=== PATIENT | male | born 1940 | race Caucasian/White ===

== ENCOUNTER → 2023-10-27 07:18 | Outpatient (REF) | payer OTHER, SELFPAY ==
[2023-10-27 09:41] LABS: Hematocrit 34.2 % (39.0-52.0); Hemoglobin 11.3 g/dL (13.0-18.0); Mean Corpuscular Hgb 30.2 pg (27.0-31.0); Mean Corpuscular Volume 91.4 fL (80.0-94.0); Mean Platelet Volume 9.6 fL (7.4-10.4); Platelet Count 351 10^3/uL (130-400); Red Blood Cell Count 3.74 10^6/uL (4.70-6.10); Red Cell Dist. Width 15.9 % (11.5-14.5); White Blood Cell Count 6.4 10^3/uL (4.8-10.8)
[2023-10-27 11:14] LABS: Glycohemoglobin (HgbA1c) 7.4 % (4.0-5.6)
[2023-10-27 11:31] LABS: Protein/creatinine Ratio 0.1; Urine Protein 6 mg/dl
[2023-10-27 11:32] LABS: ALT (SGPT) 21 U/L (0-50); AST (SGOT) 39 U/L (17-59); Albumin 4.3 g/dl (3.5-5.0); Alkaline Phosphatase 59 U/L (38-126); Blood Urea Nitrogen 33 mg/dl (9-20); Calcium 9.7 mg/dl (8.4-10.2); Carbon Dioxide 25 mmol/L (22-30); Chloride 105 mmol/L (98-107); Glucose 100 mg/dl (70-99); HDL Cholesterol 48 mg/dl; LDL Cholesterol, Calculated 103 mg/dl; Sodium 139 mmol/L (135-145); Total Bilirubin 1.3 mg/dl (0.2-1.3); Total Cholesterol 171 mg/dl (50-199); Total Protein 7.5 g/dl (6.3-8.2); Triglyceride 101 mg/dl (10-149); Very Low Density Lipoprotein 20 mg/dl (0-30)
[2023-10-27 11:41] LABS: Microalbumin, Random Urine <0.6 mg/dl (0.6-1.7)
[2023-10-27 12:12] LABS: PSA, Total - Screen 1.39 ng/ml (0.0-4.0); TSH 2.06 uIU/ml (0.47-4.68)
== END ==
LOC: HWLAB 07:18
PROVIDERS: ATTENDING PHYSICIAN Specialist; FAMILY PHYSICIAN Family Medicine; OTHER PHYSICIAN Urology; REFERRING PHYSICIAN Physician Assistant
DX: E10.65 Type 1 diabetes mellitus with hyperglycemia (principal); Z12.5 Encounter for screening for malignant neoplasm of prostate; N40.1 Benign prostatic hyperplasia with lower urinary tract symptoms; N17.9 Acute kidney failure, unspecified
CPT/HCPCS: 36415; 80053; 80061; 82043; 82570; 83036; 83970; 84156; 84443; 85027; G0103

== ENCOUNTER → 2023-11-10 07:57 | Outpatient (REF) | payer OTHER, SELFPAY | LOC: HWRCS 07:57 | PROVIDERS: ATTENDING PHYSICIAN Internal Medicine; FAMILY PHYSICIAN Family Medicine | DX: I35.0 Nonrheumatic aortic (valve) stenosis (principal); I10 Essential (primary) hypertension; I77.810 Thoracic aortic ectasia | CPT/HCPCS: 93306 ==

== ENCOUNTER → 2024-04-19 06:46 | Outpatient (REF) | payer OTHER, SELFPAY ==
[2024-04-19 09:18] LABS: Albumin 4.4 g/dl (3.5-5.0); Blood Urea Nitrogen 29 mg/dl (9-20); Calcium 9.8 mg/dl (8.4-10.2); Carbon Dioxide 26 mmol/L (22-30); Chloride 103 mmol/L (98-107); Glucose 78 mg/dl (70-99); Phosphorus 3.7 mg/dl (2.5-4.5); Sodium 139 mmol/L (135-145); eGFR 34.79
[2024-04-19 09:19] LABS: Glycohemoglobin (HgbA1c) 7.2 % (4.0-5.6)
[2024-04-19 10:26] LABS: Microalbumin, Random Urine <0.6 mg/dl (0.6-1.7)
== END ==
LOC: HWLAB 06:46
PROVIDERS: ATTENDING PHYSICIAN Specialist; FAMILY PHYSICIAN Family Medicine
DX: N17.9 Acute kidney failure, unspecified (principal); E10.65 Type 1 diabetes mellitus with hyperglycemia
CPT/HCPCS: 36415; 80069; 82043; 82570; 83036

== ENCOUNTER → 2024-07-27 07:10 | Outpatient (REF) | payer OTHER, SELFPAY ==
[2024-07-27 09:53] LABS: Hematocrit 37.5 % (39.0-52.0); Hemoglobin 12.2 g/dL (13.0-18.0); Mean Corp Hgb Conc. 32.5 g/dL (33.0-37.0); Mean Corpuscular Hgb 30.2 pg (27.0-31.0); Mean Corpuscular Volume 92.8 fL (80.0-94.0); Mean Platelet Volume 9.5 fL (7.4-10.4); Platelet Count 327 10^3/uL (130-400); Red Blood Cell Count 4.04 10^6/uL (4.70-6.10); Red Cell Dist. Width 15.6 % (11.5-14.5); White Blood Cell Count 7.1 10^3/uL (4.8-10.8)
[2024-07-27 09:56] LABS: ALT (SGPT) 28 U/L (0-50); AST (SGOT) 42 U/L (17-59); Albumin 4.4 g/dl (3.5-5.0); Alkaline Phosphatase 68 U/L (38-126); Blood Urea Nitrogen 32 mg/dl (9-20); Calcium 9.7 mg/dl (8.4-10.2); Carbon Dioxide 25 mmol/L (22-30); Chloride 105 mmol/L (98-107); Glucose 125 mg/dl (70-99); HDL Cholesterol 37 mg/dl; LDL Cholesterol, Calculated 84 mg/dl; Potassium 4.9 mmol/L (3.5-5.1); Sodium 141 mmol/L (135-145); Total Bilirubin 1.4 mg/dl (0.2-1.3); Total Cholesterol 158 mg/dl (50-199); Total Protein 7.7 g/dl (6.3-8.2); Triglyceride 189 mg/dl (10-149); Very Low Density Lipoprotein 37 mg/dl (0-30); eGFR 39.75
[2024-07-27 10:17] LABS: Protein/creatinine Ratio 0.1; Urine Protein 7 mg/dl
[2024-07-27 10:24] LABS: TSH 2.85 uIU/ml (0.47-4.68)
[2024-07-27 10:27] LABS: Microalbumin, Random Urine < 0.6 mg/dl (0.6-1.7)
[2024-07-27 10:50] LABS: IgA 531 mg/dl (70-400)
[2024-07-27 12:51] LABS: Glycohemoglobin (HgbA1c) 7.3 % (4.0-5.6)
[2024-07-28 19:17] LABS: tTG IgA Antibody 1.65 FLU (0.00-4.99)
[2024-07-29 21:11] LABS: Endomysial IgA Antibody Titer <1:10 (<1:10)
== END ==
LOC: HWLAB 07:10
PROVIDERS: ATTENDING PHYSICIAN Physician Assistant; FAMILY PHYSICIAN Family Medicine
DX: E10.65 Type 1 diabetes mellitus with hyperglycemia (principal)
CPT/HCPCS: 36415; 80053; 80061; 82043; 82570; 82784; 83036; 83516; 84156; 84443; 85027; 86231

== ENCOUNTER 2024-08-18 19:59 | Emergency (ER) | payer OTHER, SELFPAY ==
[2024-08-18 20:00] VITALS: BMI 28.7
[2024-08-18 20:09] VITALS: BP 168/103
[2024-08-18 20:17] LABS: Glucose - Point of Care 542 mg/dl (70-99)
[2024-08-18 20:25] VITALS: BP 154/139
[2024-08-18 20:50] LABS: % Basophils 0.5 % (0-2); % Immature Granulocytes 0.5 % (0-0.5); % Lymphocytes 24.3 % (20.5-51.1); % Monocytes 12.8 % (1.7-9.3); % Neutrophils 59.9 % (42.2-75.2); Absolute Eosinophils 0.1 10^3/uL (0-0.7); Absolute Lymphocytes 1.6 10^3/uL (1.2-3.4); Absolute Monocytes 0.8 10^3/uL (0.1-0.6); Absolute Neutrophils 3.9 10^3/uL (1.4-6.5); Hematocrit 37.3 % (39.0-52.0); Hemoglobin 12.4 g/dL (13.0-18.0); Mean Corp Hgb Conc. 33.2 g/dL (33.0-37.0); Mean Corpuscular Hgb 30.8 pg (27.0-31.0); Mean Corpuscular Volume 92.6 fL (80.0-94.0); Mean Platelet Volume 9.2 fL (7.4-10.4); Nucleated Red Blood Cells % 0 % (-); Platelet Count 290 10^3/uL (130-400); Red Blood Cell Count 4.03 10^6/uL (4.70-6.10); White Blood Cell Count 6.4 10^3/uL (4.8-10.8)
[2024-08-18] MEDS: NSS 1000 IV (20:58)
[2024-08-18 21:00] VITALS: BP 149/81
[2024-08-18 21:11] LABS: ALT (SGPT) 69 U/L (0-50); AST (SGOT) 176 U/L (17-59); Alkaline Phosphatase 61 U/L (38-126); Blood Urea Nitrogen 32 mg/dl (9-20); Calcium 9.2 mg/dl (8.4-10.2); Carbon Dioxide 25 mmol/L (22-30); Chloride 98 mmol/L (98-107); Estimated Creatinine Clearance 39 ml/min; Glucose 506 mg/dl (70-99); Glucose 553 mg/dl (70-99); Potassium 4.7 mmol/L (3.5-5.1); Sodium 133 mmol/L (135-145); Total Protein 7.1 g/dl (6.3-8.2); eGFR 39.75
[2024-08-18 22:00] VITALS: BP 116/94
[2024-08-18 22:38] LABS: Glucose - Point of Care 197 mg/dl (70-99)
--- NOTE | 2024-08-18 22:38 | ED.GENMED ---
History of Present Illness
General
Chief Complaint: Blood Sugar Problem
Source: patient and spouse
Time Seen by Provider: 08/18/24 20:19
History of Present Illness
History of Present Illness:
83-year-old male presents with high blood sugar. The patient states that he ate dinner last night but his pump seem to be malfunctioning. His sugar was elevated last night. He tried taking extra insulin but when he woke up his blood sugar was
still high in the morning of close to 300. He states that it seemed to be coming down a little bit by couple points and decide to go down the shore. He then had a light breakfast. His sugars then started to climb. To the afternoon they bumped up
closer to 500. Patient otherwise feels normal. He was concerned because typically is very well controlled. No chest pain or shortness of breath.
Past History
Past History
ED Past Medical History: Cancer (Colon, pancreatic), HTN, Hypercholesterolemia, NIDDM and Other (Pancreatic cancer with Whipple)
ED Past Surgical History: Other (Whipple, colon)
Phy Exam
Physical Exam
Physical Exam:
CONSTITUTIONAL Patient alert and oriented to person, place and time. Well-appearing. Vital signs reviewed.
HEAD atraumatic, normocephalic.
EYES eyelids normal to inspection, Extraocular muscles intact, Conjunctiva normal, Sclera normal.
NECK normal range of motion, Trachea midline, no jugular venous distention.
RESPIRATORY CHEST No respiratory distress noted, Chest expansion equal, Bilateral breath sounds clear.
CARDIOVASCULAR regular rate and rhythm, 3 out of 6 systolic ejection
ABDOMEN abdomen nontender, Bowel sounds normal. No distention.
BACK normal inspection, no obvious deformities
UPPER EXTREMITY range of motion normal, Motor strength normal, no cyanosis, no edema.
LOWER EXTREMITY range of motion normal, Motor strength normal, no cyanosis, no edema.
NEURO Speech normal, No focal motor deficits, [place] coma scale 15, Memory normal, Cranial Nerves intact to screening exam.
SKIN skin warm, dry, and normal in color.
Course
Orders/Labs/Results
Orders:
Orders
08/18/24 20:38
Complete Blood Count/With Diff Urgent
Comprehensive Metabolic Panel Urgent
Glucose Stat
08/18/24 20:55
0.9% Sodium Chloride 1000 ml [Nss] 1,000 ml IV BOLUS
Abnormal Lab Results
08/18/24 08/18/24 08/18/24
20:15 20:38 20:38
RBC 4.03 L 10^6/uL
(4.70-6.10)
Hgb 12.4 L g/dL
(13.0-18.0)
Hct 37.3 L %
(39.0-52.0)
RDW 15.0 H %
(11.5-14.5)
Absolute Monos (auto) 0.8 H 10^3/uL
(0.1-0.6)
Monocytes % 12.8 H %
(1.7-9.3)
Sodium 133 L mmol/L
(135-145)
BUN 32 H mg/dl
(9-20)
Creatinine 1.7 H mg/dL
(0.7-1.3)
Glucose 506 H* mg/dl 553 H* mg/dl
(70-99) (70-99)
Total Bilirubin 2.0 H mg/dl
(0.2-1.3)
AST 176 H U/L
(17-59)
ALT 69 H U/L
(0-50)
POC Glucose 542 H* mg/dl
(70-99)
08/18/24
22:37
RBC
Hgb
Hct
RDW
Absolute Monos (auto)
Monocytes %
Sodium
BUN
Creatinine
Glucose
Total Bilirubin
AST
ALT
POC Glucose 197 H mg/dl
(70-99)
08/18/24 20:38
08/18/24 20:38
Vital Signs
Initial and Last Documented VS:
Initial Vital Signs
Temp Pulse Resp BP Pulse Ox
97.7 F 64 18 168/103 97
08/18/24 20:09 08/18/24 20:09 08/18/24 20:09 08/18/24 20:09 08/18/24 20:09
Last Documented Vital Signs
Temp Pulse Resp BP Pulse Ox
97.7 F 54 21 149/81 96
08/18/24 20:09 08/18/24 21:45 08/18/24 21:45 08/18/24 21:00 08/18/24 21:45
MDM/Problems Addressed
MDM/Problems Addressed:
Hyperglycemia
*Pulse Oximetry
Patient hypoxic: no
*Critical Care Note
Total Time (30-74mins, 75-104mins- exclusive of procedures): Not Applicable
Data Reviewed
Source: patient and spouse (Spouse states that his blood sugars were climbing through the afternoon and that typically he is well-controlled)
Prescriptions/Medications Considered But Not Given:
Considered insulin but good results after IV fluids. Patient will continue his insulin pump
Patient Management
Escalation/DeEscalation of care consider admission/obs:
Considered admission to the hospital however patient responded well to IV fluids. Continue close management with insulin pump and okay for outpatient management
ED Attending Note
-
Portions of this chart may have been created with voice recognition software.� Occasional wrong word or��sound alike� substitutions may have occurred due to the inherent limitations of voice recognition software.
Discharge Plan
Departure
Patient Disposition: Home (Routine Discharge)
Date of Disposition: 08/18/24
Time of Disposition: 22:41
Patient with high blood pressure during this ER visit?: Yes
Discharge Problem:
Acute hyperglycemia, Insulin pump malfunction
Instructions: High blood sugar in adults - ED discharge instructions
Prescriptions:
No Action
pantoprazole 40 MG tablet,delayed release (DR/EC)
40 mg PO DAILY
Creon 1 EACH capsule,delayed release(DR/EC)
2 ea PO AC
Insulin Pump [Patient's Own Insulin Pump:] 1 UNITS Pump.Resvr
0 ea SC ACHS
Patient Comments:
sliding scale per carbs
Rx Instructions:
patient using novolog, patient current also most out on insulin in pump, patient fills 3ml and changes every 5 days. last filled on 10/23/22
valsartan 80 mg Tablet
80 mg PO DAILY
Creon 24,000-76,000 -120,000 unit Capsule,Delayed Release(Dr/Ec)
1 cap PO HS
hydralazine 50 mg Tablet
50 mg PO BID
tamsulosin 0.4 MG capsule
0.4 mg PO HS
Referrals:
Jimmy Victor DO [Family Provider] -
Activity Restrictions/Additional Instructions:
Watch your blood sugar closely and stick to a strict diabetic diet. Return immediately for changes in mentation, weakness, uncontrolled high blood sugars, low blood sugar or any other concerns.
Interventions
Interventions:
*Risk Screen - Suicide Last Done: 08/18/24 20:09
*General Assessment Last Done: 08/18/24 20:09
*Neglect/Abuse Screening Last Done: 08/18/24 20:09
*ED COVID-19 Vaccine History Last Done: 08/18/24 20:49
ED- Neurological Assessment Last Done: 08/18/24 20:45
Discharge Date and Time
Print Language: IVORIAN
== END 2024-08-18 22:59 | disposition home or self-care (01) ==
LOC: EMR 19:59
PROVIDERS: EMERGENCY PHYSICIAN Emergency Medicine; FAMILY PHYSICIAN Family Medicine
DX: T85.614A Breakdown (mechanical) of insulin pump, initial encounter (principal); E11.65 Type 2 diabetes mellitus with hyperglycemia; Y74.1 Therapeutic (nonsurgical) and rehabilitative general hospital and personal-use devices associated with adverse incidents; Z79.4 Long term (current) use of insulin; I10 Essential (primary) hypertension
CPT/HCPCS: 99284; 96360; 80053; 82947; 82962; 85025

== ENCOUNTER → 2024-12-11 09:30 | Outpatient (REF) | payer OTHER, SELFPAY | LOC: HWRCS 09:30 | PROVIDERS: ATTENDING PHYSICIAN Nurse Practitioner; FAMILY PHYSICIAN Family Medicine | DX: I35.0 Nonrheumatic aortic (valve) stenosis (principal) | CPT/HCPCS: 93306 ==

== ENCOUNTER → 2025-01-25 08:14 | Outpatient (REF) | payer OTHER, SELFPAY ==
[2025-01-25 09:24] LABS: Urine Character Clear (Clear)
[2025-01-25 09:32] LABS: Hematocrit 38.2 % (39.0-52.0); Hemoglobin 12.6 g/dL (13.0-18.0); Mean Corp Hgb Conc. 33.0 g/dL (33.0-37.0); Mean Corpuscular Volume 93.6 fL (80.0-94.0); Nucleated Red Blood Cells % 0 % (-); Platelet Count 317 10^3/uL (130-400); Red Cell Dist. Width 14.6 % (11.5-14.5); Urine Squamous Cell 0-2 /LPF (Few); Urine White Cell 0-2 /HPF (0-5)
[2025-01-25 10:24] LABS: Microalb - Urine Creatinine 76.400 mg/dl
[2025-01-25 10:29] LABS: Microalbumin, Random Urine 1.2 mg/dl (0.6-1.7)
[2025-01-25 10:44] LABS: ALT (SGPT) 32 U/L (0-50); AST (SGOT) 42 U/L (17-59); Albumin 4.4 g/dl (3.5-5.0); Alkaline Phosphatase 58 U/L (38-126); Blood Urea Nitrogen 33 mg/dl (9-20); Calcium 9.7 mg/dl (8.4-10.2); Carbon Dioxide 28 mmol/L (22-30); Chloride 100 mmol/L (98-107); Glucose 134 mg/dl (70-99); HDL Cholesterol 47 mg/dl; LDL Cholesterol, Calculated 53 mg/dl; Potassium 5.6 mmol/L (3.5-5.1); Sodium 136 mmol/L (135-145); Total Protein 7.8 g/dl (6.3-8.2); Very Low Density Lipoprotein 20 mg/dl (0-30); eGFR 36.89
[2025-01-25 11:00] LABS: Vitamin D, 25-OH*** 27.6 ng/mL (30-80)
[2025-01-25 11:14] LABS: PSA, Total - Screen 1.01 ng/ml (0.0-4.0)
[2025-01-25 11:48] LABS: Glycohemoglobin (HgbA1c) 7.8 % (4.0-5.6)
== END ==
LOC: HWLAB 08:14
PROVIDERS: ATTENDING PHYSICIAN Nurse Practitioner Family
DX: N18.32 Chronic kidney disease, stage 3b (principal); E78.2 Mixed hyperlipidemia; I10 Essential (primary) hypertension; E10.22 Type 1 diabetes mellitus with diabetic chronic kidney disease
CPT/HCPCS: 36415; 80053; 80061; 81003; 81015; 82043; 82306; 82570; 83036; 83970; 84443; 85025; G0103

== ENCOUNTER → 2025-02-01 07:17 | Outpatient (REF) | payer OTHER, SELFPAY | LOC: HWRAD 07:17 | PROVIDERS: ATTENDING PHYSICIAN Nurse Practitioner Family; FAMILY PHYSICIAN Family Medicine | DX: E04.1 Nontoxic single thyroid nodule (principal) | CPT/HCPCS: 76536 ==